=== PATIENT | male | born 1965 | race Caucasian/White ===

== ENCOUNTER 2016-10-04 08:06 | Day surgery (SDC) | payer OTHER ==
[2016-10-04] MEDS ORDERED: BUPIVACAINE/EPI PF 0.25% 30 ML VIAL ONE (09:01)
[2016-10-04 09:03] LABS: BASOPHILS # (AUTO) 0.1 K/uL (0.0-8.0); BASOPHILS % (AUTO) 0.8 % (0.0-2.0); EOSINOPHILS # (AUTO) 0.3 K/uL (0.0-0.7); EOSINOPHILS % (AUTO) 3.4 % (0.0-7.0); HEMATOCRIT 46.5 % (36.7-47.1); LYMPHOCYTES # (AUTO) 2.6 K/uL (20.0-40.0); LYMPHOCYTES % (AUTO) 28.1 % (20.5-51.5); MEAN CORPUSCULAR HEMOGLOBIN 32.4 uug (23.8-33.4); MEAN CORPUSCULAR HGB CONC 34 g/dL (32.5-36.3); MEAN CORPUSCULAR VOLUME 94.3 fL (73.0-96.2); MONOCYTES # (AUTO) 0.7 K/uL (2.0-10.0); MONOCYTES % (AUTO) 7.1 % (0.0-11.0); NEUTROPHILS # (AUTO) 5.6 K/uL (1.8-8.9); NEUTROPHILS % (AUTO) 60.6 % (38.5-71.5); PLATELET COUNT (AUTO) 190 K/uL (152-348); RED BLOOD CELL COUNT(AUTO) 4.93 MIL/uL (4.06-5.63); RED CELL DISTRIBUTION WIDTH 12.6 % (12.1-16.2); WHITE BLOOD COUNT (AUTO) 9.3 K/uL (3.6-10.2)
[2016-10-04 09:03] LABS: *BILIRUBIN,URIN NEGATIVE (NEGATIVE); *BLOOD, URINE NEGATIVE (NEGATIVE); *CLARITY,URINE CLEAR (CLEAR); *COLOR,URINE YELLOW (YELLOW); *KETONES,URINE NEGATIVE (NEGATIVE); *PROTEIN,URINE NEGATIVE (NEGATIVE); *UROBILINOGEN,URINE 0.2 E.U./dl (NORMAL); LEUKOCYTE ESTERASE ,URINE NEGATIVE (NEGATIVE); NITRITE, URINE NEGATIVE (NEGATIVE); UGLUCOSE NEGATIVE (NEGATIVE)
[2016-10-04 09:08] LABS: BACTERIA,URINE NONE SEEN /HPF (NONE SEEN); RBC,URINE NONE SEEN /HPF (0-3); SQUAMOUS EPITHELIAL CELL,UR FEW /HPF (NONE SEEN); WBC,URINE 0-3 /HPF (0-3)
[2016-10-04 09:22] LABS: CALCIUM 8.8 mg/dL (8.5-10.1); CREATININE 1.1 mg/dL (0.6-1.3); POTASSIUM 4.3 mmol/L (3.5-5.1)
[2016-10-04] MEDS ORDERED: FENTANYL CITRATE 250 MCG/5 ML AMPUL ONE (09:40)
[2016-10-04] MEDS ORDERED: MIDAZOLAM HCL 2 MG/2 ML VIAL ONE (09:40)
[2016-10-04] MEDS ORDERED: ROCURONIUM BROMIDE 50 MG/5 ML VIAL ONE (09:41)
[2016-10-04] MEDS ORDERED: SUCCINYLCHOLINE CHLORIDE 200 MG/10 ML VIAL ONE (09:41)
[2016-10-04] MEDS ORDERED: POLYMYXIN B SULFATE 500,000 UNITS, BACITRACIN 50,000 UNITS, NORMAL SALINE 20 ML MC ONE ×3 (10:30)
[2016-10-04] MEDS ORDERED: BACITRACIN 50,000 UNITS VIAL ONE (10:48)
[2016-10-04] MEDS ORDERED: DESFLURANE ANESTHESIA GAS 240 ML BOTTLE ONE (11:31)
[2016-10-04] MEDS ORDERED: CEFAZOLIN 1 G VIAL MC ONE (12:03)
[2016-10-04] MEDS ORDERED: ONDANSETRON 4 MG/2 ML VIAL IV ONE (12:03)
[2016-10-04] MEDS ORDERED: PROPOFOL 1,000 MG/100 ML BOTTLE IV ONE (12:03)
[2016-10-04] MEDS ORDERED: LIDOCAINE-MPF 2% 5 ML VIAL MC ONE (12:04)
[2016-10-04] MEDS ORDERED: DEXAMETHASONE SOD PHOSPHATE 4 MG INJ IV ONE (12:04)
[2016-10-04] MEDS ORDERED: KETOROLAC TROMETHAMINE 30 MG INJ IM ONE (12:04)
[2016-10-04] MEDS ORDERED: IV LACTATED RINGERS SOLUTION 1,000 ML BAG IV ONE (12:05)
== END 2016-10-04 14:47 | disposition home or self-care (01) ==
LOC: DS 08:06
PROVIDERS: ATTEND Orthopaedic Surgery Sports Medicine
DX: M23.222 Derangement of posterior horn of medial meniscus due to old tear or injury, left knee (principal); M79.5 Residual foreign body in soft tissue; Z87.891 Personal history of nicotine dependence
CPT/HCPCS: 36415; 85025; 85730; A4663; J0330; J0690; J1100; J1885; J2250; J2405; J3010; J3490; J7120